=== PATIENT | male | born 1970 | race Caucasian/White ===

== ENCOUNTER → 2017-03-15 | Outpatient (CLI) | payer OTHER | LOC: KOH-I 15:57 | DX: M79.604 Pain in right leg (principal); S93.401A Sprain of unspecified ligament of right ankle, initial encounter | CPT/HCPCS: 73590; 73610 ==

== ENCOUNTER → 2020-12-09 | Outpatient (CLI) | payer OTHER ==
[~2020-12-09] MED LIST: BACTROBAN OINT22 GM EXT; CEFUROXIME500 MG PO; FLOMAX0.4 MG PO; KEFLEX CAP 500500 MG PO; LODINE CAP 300300 MG PO; NORCO 5-325 TA1 EACH PO; PERCOCET 5/325 T1 EA PO; TESSALON PERLE100 MG PO; TORADOL 10 MG T10 MG PO; VENTOLIN HFA 66.7 GM INH; ZITHROMAX500 MG PO; ZOFRAN ODT 4 MG4 MG PO
== END ==
LOC: HEART 5 10:05
DX: R07.9 Chest pain, unspecified (principal); I51.7 Cardiomegaly; R93.1 Abnormal findings on diagnostic imaging of heart and coronary circulation
CPT/HCPCS: 93306

== ENCOUNTER → 2020-12-10 | Outpatient (CLI) | payer OTHER | LOC: HEART 5 07:40 | DX: R07.9 Chest pain, unspecified (principal) | CPT/HCPCS: 78452; A9502 ==

== ENCOUNTER 2021-05-07 06:33 | Emergency (ER) | payer OTHER ==
[~2021-05-07] VITALS: Ht 185.4 cm; Wt 93.0 kg
[2021-05-07 10:01] LABS: HEMOGLOBIN 15.5 gm/dl (14.0-17.5); RED BLOOD COUNT 5.03 M/UL (4.20-5.50); WHITE BLOOD COUNT 6.8 K/UL (4.5-11.0)
[2021-05-07 10:27] LABS: BUN/CREATININE RATIO 10 (0-10)
== END 2021-05-07 13:44 | disposition home or self-care (01) ==
LOC: ER1 06:33
PROVIDERS: Emergency Medicine
DX: Z23 Encounter for immunization (principal); U07.1 COVID-19; I25.10 Atherosclerotic heart disease of native coronary artery without angina pectoris; I10 Essential (primary) hypertension; I25.2 Old myocardial infarction; Z90.49 Acquired absence of other specified parts of digestive tract
CPT/HCPCS: 0240U; 71045; 80053; 82550; 82553; 83874; 84484; 85025; 85379; 93005; 99284; M0243

== ENCOUNTER → 2021-05-26 | Outpatient (CLI) | payer OTHER | LOC: US 14:15 | DX: N50.819 Testicular pain, unspecified (principal); N50.89 Other specified disorders of the male genital organs | CPT/HCPCS: 76870 ==

== ENCOUNTER → 2021-09-25 | Outpatient (CLI) | payer OTHER | LOC: CT 11:57 | DX: U07.1 COVID-19 (principal); R06.02 Shortness of breath; J44.9 Chronic obstructive pulmonary disease, unspecified; R91.1 Solitary pulmonary nodule | CPT/HCPCS: 36415; 71260; Q9967 ==

== ENCOUNTER → 2021-12-09 | Outpatient (CLI) | payer OTHER | LOC: KOH-I 11:17 | DX: R91.1 Solitary pulmonary nodule (principal); M54.50 Low back pain, unspecified | CPT/HCPCS: 71250; 72070; 72100 ==